=== PATIENT | male | born 1955 | race Two or more races ===

== ENCOUNTER 2018-01-12 20:53 | Inpatient (IN) | payer MEDICAID ==
[~2018-01-12] VITALS: Ht 165.1 cm; Wt 96.6 kg
[2018-01-12] MEDS ORDERED: ACETAMINOPHEN 500 MG TABLET PO ONE (21:30)
[2018-01-12] MEDS ORDERED: ASPIRIN 81 MG TABLET CHEW PO ONE (21:30)
[2018-01-12] MEDS ORDERED: ONDANSETRON ODT 4 MG PO ONE (21:30)
[2018-01-12] MEDS ORDERED: ASPIRIN 81 MG TABLET CHEW ONE (21:33)
[2018-01-12] MEDS ORDERED: ONDANSETRON ODT 4 MG ONE (21:33)
[2018-01-12] MEDS ORDERED: ACETAMINOPHEN 500 MG TABLET ONE (21:33)
[2018-01-12 21:40] LABS: BASOPHILS # (AUTO) 0.02 x10^3/uL (0-0.1); BASOPHILS % (AUTO) 0 % (0-1); EOSINOPHILS # (AUTO) 0.32 x10^3/uL (0-0.4); EOSINOPHILS % (AUTO) 7 % (1-7); LYMPHOCYTES % (AUTO) 25 % (22-44); MD NO; MEAN CORPUSCULAR HEMOGLOBIN 30.3 pg (27.5-34.5); MEAN CORPUSCULAR HGB CONC 33.5 g/dL (33.2-36.2); MEAN CORPUSCULAR VOLUME 90.5 fL (81-97); MEAN PLATELET VOLUME 10.4 fL (7.4-10.4); MONOCYTES # (AUTO) 0.72 x10^3/uL (0.2-0.8); MONOCYTES % (AUTO) 15 % (2-9); NEUTROPHILS # (AUTO) 2.56 x10^3/uL (1.8-6.8); NEUTROPHILS % (AUTO) 53 % (42-75); PLATELET COUNT 112 x10^3/uL (130-400); RED BLOOD COUNT 5.18 x10^6/uL (4.38-5.82); RED CELL DISTRIBUTION WIDTH 14.2 % (9.4-14.8)
[2018-01-12 21:50] LABS: ALBUMIN 3.2 g/dL (3.4-5.0); ANION GAP 6 mmol/L (5-15); CALCIUM 9.9 mg/dL (8.5-10.1); CHLORIDE 107 mmol/L (98-107); CREATININE 0.95 mg/dL (0.7-1.3)
[2018-01-12 21:54] LABS: TROPONIN I < 0.015 ng/mL (0.000-0.045)
[2018-01-12] MEDS ORDERED: OMNIPAQUE 350 MG/ML, 100ML BOTTLE ONE (21:59)
[2018-01-12] MEDS ORDERED: MORPHINE SULFATE 4 MG/ML, 1ML ONE (22:56)
[2018-01-12] MEDS ORDERED: MORPHINE SULFATE 4 MG/ML, 1ML IVPush ONE (23:00)
[2018-01-13] VITALS (11 sets, daily range): BP systolic 119–165; BP diastolic 83–136
[2018-01-13] MEDS ORDERED: NITROGLYCERIN 0.4 MG BOTTLE (25 TABS) SL PRN
[2018-01-13] MEDS ORDERED: ONDANSETRON ODT 4 MG PO PRN
[2018-01-13] MEDS ORDERED: POLYETHYLENE GLYCOL 17 GM PACKET PO PRN
[2018-01-13] MEDS ORDERED: BISACODYL 10 MG SUPP PR PRN
[2018-01-13] MEDS ORDERED: DIPHENHYDRAMINE 50 MG/ML, 1ML IVPush PRN
[2018-01-13] MEDS ORDERED: methylPREDNISolone SOD SUCC 125 MG/2 ML IVPush ONE
[2018-01-13 00:21] LABS: ALBUMIN 3.1 g/dL (3.4-5.0); BILIRUBIN, DIRECT 0.4 mg/dL (0.1-0.2)
[2018-01-13 00:23] LABS: BILIRUBIN,INDIRECT 1.1 mg/dL (0.0-2.0); BILIRUBIN,TOTAL 1.5 mg/dL (0.2-1.0); TOTAL PROTEIN 7.4 g/dL (6.4-8.2)
[2018-01-13 00:36] LABS: CULTURE INDICATED? NO; MICROSCOPIC NOT IND
[2018-01-13 00:42] LABS: AMPHETAMINE SCREEN, URINE Negative (Negative); BARBITURATE SCREEN, URINE Negative (Negative); BENZODIAZEPINE SCREEN, URINE Negative (Negative); CANNABINOID SCREEN, URINE Negative (Negative); COCAINE SCREEN, URINE Negative (Negative); METHADONE SCREEN, URINE Negative (Negative); OPIATE SCREEN, URINE Negative (Negative)
[2018-01-13] MEDS: DIPHENHYDRAMINE 50 MG/ML, 1ML IVPush SCH ×2 (00:54→08:09)
[2018-01-13] MEDS: FAMOTIDINE 20 MG TABLET PO SCH ×3 (00:54→19:58)
[2018-01-13] MEDS: SODIUM CHLORIDE FLUSH 10ML SYR IVF SCH ×3 (00:55→19:59)
[2018-01-13] MEDS: HEPARIN 5,000 UNITS/ML, 1ML SQ SCH ×3 (00:55→16:29)
[2018-01-13] MEDS: methylPREDNISolone SOD SUCC 125 MG/2 ML IVPush SCH ×3 (00:56→12:13)
[2018-01-13 03:54] LABS: BASOPHILS # (AUTO) 0.01 x10^3/uL (0-0.1); BASOPHILS % (AUTO) 0 % (0-1); EOSINOPHILS # (AUTO) 0.09 x10^3/uL (0-0.4); EOSINOPHILS % (AUTO) 3 % (1-7); LYMPHOCYTES # (AUTO) 0.71 x10^3/uL (1-3.4); LYMPHOCYTES % (AUTO) 19 % (22-44); MD NO; MEAN CORPUSCULAR HEMOGLOBIN 30.9 pg (27.5-34.5); MEAN CORPUSCULAR HGB CONC 33.7 g/dL (33.2-36.2); MEAN CORPUSCULAR VOLUME 91.5 fL (81-97); MEAN PLATELET VOLUME 10.5 fL (7.4-10.4); MONOCYTES # (AUTO) 0.16 x10^3/uL (0.2-0.8); MONOCYTES % (AUTO) 4 % (2-9); NEUTROPHILS # (AUTO) 2.78 x10^3/uL (1.8-6.8); NEUTROPHILS % (AUTO) 74 % (42-75); PLATELET COUNT 100 x10^3/uL (130-400); RED BLOOD COUNT 5.03 x10^6/uL (4.38-5.82); RED CELL DISTRIBUTION WIDTH 14.3 % (9.4-14.8)
[2018-01-13 04:00] LABS: ALANINE AMINOTRANSFERASE 37 U/L (12-78); ANION GAP 5 mmol/L (5-15); CALCIUM 9.2 mg/dL (8.5-10.1); CHLORIDE 105 mmol/L (98-107); CHOLESTEROL, TOTAL 122 mg/dL (140-239); CREATININE 1.19 mg/dL (0.7-1.3); TRIGLYCERIDES 140 mg/dL (50-200); VLDL CHOLESTEROL 28 mg/dL (0-25)
[2018-01-13 04:05] LABS: ALKALINE PHOSPHATASE 61 U/L (45-117); BILIRUBIN,TOTAL 1.3 mg/dL (0.2-1.0); CHOL/HDL RATIO 5.8; HDL CHOL % 17 % (26-37); HDL CHOLESTEROL (DIRECT) 21 mg/dL (40-60); LDL CHOLESTEROL,CALCULATED 73 mg/dL (54-169); LDL/HDL RATIO 3.5 (0.5-3.0); TOTAL PROTEIN 7.2 g/dL (6.4-8.2); TROPONIN I < 0.015 ng/mL (0.000-0.045)
[2018-01-13] MEDS: ASPIRIN 81 MG TABLET EC PO SCH (06:07)
[2018-01-13] MEDS: SENNA/DOCUSATE TABLET PO SCH (08:16)
[2018-01-13] MEDS ORDERED: REGADENOSON 0.4 MG/5 ML SYRINGE ONE (09:00)
[2018-01-13 11:09] LABS: TROPONIN I < 0.015 ng/mL (0.000-0.045)
[2018-01-13] MEDS: INSULIN LISPRO 100 UNITS/ML, PEN SQ-INSULIN SCH ×3 (12:53→20:06)
[2018-01-13] MEDS: OXYcodone IR 5MG TABLET PO PRN ×3 (12:53→22:12)
[2018-01-13] MEDS ORDERED: METOPROLOL SUCCINATE 25 MG TAB.ER.24H PO SCH (15:00)
[2018-01-13] MEDS ORDERED: hydrALAzine 20 MG/ML, 1ML IV PRN ×2 (16:00)
[2018-01-13] MEDS ORDERED: METO-99 PO (16:46)
[2018-01-13] MEDS ORDERED: ATOR20TA9 PO (16:46)
[2018-01-14] MEDS ORDERED: methylPREDNISolone SOD SUCC 125 MG/2 ML IVPush SCH (00:30)
[2018-01-14 01:01] VITALS: BP 138/82
[2018-01-14] MEDS: HEPARIN 5,000 UNITS/ML, 1ML SQ SCH ×3 (01:01→16:28)
[2018-01-14] MEDS: ACETAMINOPHEN 325 MG TABLET PO PRN ×3 (01:08→20:10)
[2018-01-14] MEDS: ASPIRIN 81 MG TABLET EC PO SCH (06:35)
[2018-01-14 07:01] VITALS: BP 157/98
[2018-01-14] MEDS: OXYcodone IR 5MG TABLET PO PRN ×2 (08:18→21:26)
[2018-01-14] MEDS: INSULIN LISPRO 100 UNITS/ML, PEN SQ-INSULIN SCH ×4 (09:41→21:26)
[2018-01-14] MEDS: SODIUM CHLORIDE FLUSH 10ML SYR IVF SCH ×2 (09:42→21:26)
[2018-01-14] MEDS: FAMOTIDINE 20 MG TABLET PO SCH ×2 (09:43→21:25)
[2018-01-14] MEDS: SENNA/DOCUSATE TABLET PO SCH (09:43)
[2018-01-14] MEDS: METOPROLOL TARTRATE 100 MG TABLET PO SCH ×2 (09:46→21:25)
[2018-01-14 11:11] LABS: ANION GAP 8 mmol/L (5-15); CALCIUM 9.6 mg/dL (8.5-10.1); CHLORIDE 102 mmol/L (98-107); CREATININE 1.25 mg/dL (0.7-1.3)
[2018-01-14 11:25] LABS: MEAN CORPUSCULAR HEMOGLOBIN 30.7 pg (27.5-34.5); MEAN CORPUSCULAR HGB CONC 33.1 g/dL (33.2-36.2); MEAN CORPUSCULAR VOLUME 92.8 fL (81-97); MEAN PLATELET VOLUME 10.7 fL (7.4-10.4); PLATELET COUNT 117 x10^3/uL (130-400); RED BLOOD COUNT 5.11 x10^6/uL (4.38-5.82); RED CELL DISTRIBUTION WIDTH 14.8 % (9.4-14.8)
[2018-01-14 11:40] LABS: BASOPHILS % (AUTO) 0 % (0-1); EOSINOPHILS % (AUTO) 0 % (1-7); LYMPHOCYTES # (AUTO) 0.78 x10^3/uL (1-3.4); LYMPHOCYTES % (AUTO) 7 % (22-44); MD SCAN; MONOCYTES # (AUTO) 0.37 x10^3/uL (0.2-0.8); MONOCYTES % (AUTO) 3 % (2-9); NEUTROPHILS # (AUTO) 9.92 x10^3/uL (1.8-6.8); NEUTROPHILS % (AUTO) 90 % (42-75)
[2018-01-14 12:08] VITALS: BP 138/86
[2018-01-14 12:43] LABS: HEMOGLOBIN A1C 6.8 % (4.2-6.3)
[2018-01-14 19:57] VITALS: BP 132/74
[2018-01-14] MEDS ORDERED: ATORVASTATIN 20 MG TABLET PO SCH (21:00)
[2018-01-15] MEDS: HEPARIN 5,000 UNITS/ML, 1ML SQ SCH ×2 (00:59→08:00)
[2018-01-15 02:27] VITALS: BP 136/86
[2018-01-15 04:55] LABS: BASOPHILS # (AUTO) 0.02 x10^3/uL (0-0.1); BASOPHILS % (AUTO) 0 % (0-1); EOSINOPHILS # (AUTO) 0.01 x10^3/uL (0-0.4); EOSINOPHILS % (AUTO) 0 % (1-7); LYMPHOCYTES % (AUTO) 13 % (22-44); MD NO; MEAN CORPUSCULAR HEMOGLOBIN 30.8 pg (27.5-34.5); MEAN CORPUSCULAR HGB CONC 33.6 g/dL (33.2-36.2); MEAN CORPUSCULAR VOLUME 91.8 fL (81-97); MEAN PLATELET VOLUME 10.7 fL (7.4-10.4); MONOCYTES # (AUTO) 1.15 x10^3/uL (0.2-0.8); MONOCYTES % (AUTO) 11 % (2-9); NEUTROPHILS # (AUTO) 7.78 x10^3/uL (1.8-6.8); NEUTROPHILS % (AUTO) 76 % (42-75); PLATELET COUNT 123 x10^3/uL (130-400); RED BLOOD COUNT 4.97 x10^6/uL (4.38-5.82); RED CELL DISTRIBUTION WIDTH 14.8 % (9.4-14.8)
[2018-01-15 05:09] LABS: ANION GAP 7 mmol/L (5-15); CALCIUM 9.7 mg/dL (8.5-10.1); CHLORIDE 106 mmol/L (98-107); CREATININE 1.16 mg/dL (0.7-1.3)
[2018-01-15] MEDS: ASPIRIN 81 MG TABLET EC PO SCH (06:10)
[2018-01-15] MEDS: INSULIN LISPRO 100 UNITS/ML, PEN SQ-INSULIN SCH (07:00)
[2018-01-15] MEDS: FAMOTIDINE 20 MG TABLET PO SCH (08:03)
[2018-01-15] MEDS: METOPROLOL TARTRATE 100 MG TABLET PO SCH (08:03)
[2018-01-15] MEDS: SENNA/DOCUSATE TABLET PO SCH (08:03)
[2018-01-15] MEDS: SODIUM CHLORIDE FLUSH 10ML SYR IVF SCH (08:04)
[2018-01-15 08:14] VITALS: BP 150/93
[2018-01-15] MEDS ORDERED: ASPI-621 PO (08:30)
== END 2018-01-15 09:50 | disposition home or self-care (01) | DRG 392 ==
LOC: ED 21:30 → EDIP 01-13 00:02 → 5SO 01-13 00:27 → DCLOUNGE 01-15 09:37
PROVIDERS: ADMIT Internal Medicine; ATTEND Internal Medicine
DX: K21.9 Gastro-esophageal reflux disease without esophagitis (principal); E44.1 Mild protein-calorie malnutrition; J98.11 Atelectasis; T78.3XXA Angioneurotic edema, initial encounter; N20.0 Calculus of kidney; E66.9 Obesity, unspecified; D69.6 Thrombocytopenia, unspecified; E78.5 Hyperlipidemia, unspecified; I10 Essential (primary) hypertension; N28.1 Cyst of kidney, acquired; Z66 Do not resuscitate; J98.8 Other specified respiratory disorders; M54.5 Low back pain; D72.829 Elevated white blood cell count, unspecified; R10.9 Unspecified abdominal pain; R00.0 Tachycardia, unspecified; Z84.1 Family history of disorders of kidney and ureter; Z68.35 Body mass index [BMI] 35.0-35.9, adult; Z83.3 Family history of diabetes mellitus; Z79.899 Other long term (current) drug therapy
CPT/HCPCS: 0399T; 36415; 71045; 71275; 72100; 74175; 76700; 76770; 78452; 80048; 80053; 80061; 80076; 80307; 81003; 82040; 82962; 83036; 83880; 84484; 85025; 93005; 93017; 93306; 96374; 99285; G0378; J1644; J2785; Q0162; Q9967; A9502; C9898; J0360; J1200; J1815; J2930

== ENCOUNTER 2018-11-19 10:32 | Emergency (ER) | payer MEDICAID, OTHER ==
[~2018-11-19] VITALS: Ht 165.1 cm; Wt 103.2 kg
[2018-11-19 11:51] VITALS: BP 153/98
== END 2018-11-19 13:29 | disposition home or self-care (01) ==
LOC: ED 13:05
DX: G89.29 Other chronic pain (principal); R10.13 Epigastric pain; I10 Essential (primary) hypertension
CPT/HCPCS: 36415; 80053; 81003; 83690; 85025; 99283; Q0162